=== PATIENT | male | born 1995 | race Two or more races ===

== ENCOUNTER 2025-05-05 13:52 | Inpatient (IN) | payer SELFPAY ==
[~2025-05-05] VITALS: Ht 182.9 cm; Wt 106.0 kg
[2025-05-05 14:38] LABS: Hematocrit 47.9 % (41.0-53.0); Hemoglobin 16.5 g/dL (13.5-17.5); Mean Corpuscular Hemoglobin 30.6 pg (28.0-32.0); Mean Corpuscular Volume 88.9 fL (80.0-100.0); Nucleated Red Blood Cells % 0.2 %
--- NOTE | 2025-05-05 14:42 | ED.PDOC ---
HPI (NEURO) HPI Comments 29y M who presents to the ED for chief complaint of generalized weakness. Pt states he has been having generalized weakness with associated increased blood in vomit, and increased urinary frequency and urgency. Pt states since yesterday, he has been using the restroom "40 times" and partner states pt has had incontinence in bed. Pt in the ED, noted to have weakness and malaise and had vitals checked with noted accu check that read HIGH. Pt has no history of DM but has family history on fathers side of DM. Pt otherwise denies any other symptoms at this time Chief Complaint: General Weakness Time Seen by MD: 14:41 Reviewed Notes: Medications, Allergies Information Source: Patient, Significant Other Mode of Arrival: Ambulatory Past Medical History PAST MEDICAL HISTORY: Denies Surgical History: Denies all surgeries Family History Family History: Family hx of DM Social History Smoker: Non-Smoker Alcohol: Denies ETOH Use Drugs: Denies Drug Use Lives In: Home Constitutional: reports: malaise, weakness; denies: chills, diaphoresis, fatigue, fever, sweats, others EENTM: denies: blurred vision, double vision, ear bleeding, ear discharge, ear drainage, ear pain, ear ringing, eye pain, eye redness, hearing loss, mouth pain, mouth swelling, nasal discharge, nose bleeding, nose congestion, nose pain, photophobia, tearing, throat pain, throat swelling, voice changes, others Respiratory: denies: cough, hemoptysis, orthopnea, SOB at rest, shortness of breath, SOB with excertion, stridor, wheezing, others Cardiovascular: denies: chest pain, dizzy spells, diaphoresis, Dyspnea on exertion, edema, irregular heart beat, left arm pain, lightheadedness, palpitations, PND, syncope, others Gastrointestinal: denies: abdomen distended, abdominal pain, blood streaked bowels, constipated, diarrhea, dysphagia, difficulty swallowing, hematemesis, melena, nausea, poor appetite, poor fluid intake, rectal bleeding, rectal pain, vomiting, others Genitourinary: denies: burning, dysuria, flank pain, frequency, hematuria, incontinence, penile discharge, penile sore, pain, testicle pain, testicle swelling, urgency, others Neurological: denies: dizziness, fainting, headache, left sided numbness, left sided weakness, numbness, paresthesia, pre-existing deficit, right sided numbness, right sided weakness, seizure, speech problems, tingling, tremors, weakness, others Musculoskeletal: denies: back pain, gout, joint pain, joint swelling, muscle pain, muscle stiffness, neck pain, others Integumetry: denies: bruises, change in color, change in hair/nails, dryness, laceration, lesions, lumps, rash, wounds, others Allergic/Immunocompromised: denies: Difficulty Healing, Frequent Infections, Hives, Itching, others Hematologic/Lymphatic: denies: anemia, blood clots, easy bleeding, easy bruising, swollen glands, others Endocrine: reports: excessive thirst, excessive urination; denies: excessive hunger, excessive sweating, flushing, intolerance to cold, intolerance to heat, unexplained weight gain, unexplained weight loss, others Psychiatric: denies: anxiety, bipolar disorder, depression, hopeless, panic dis order, schizophrenia, sleepless, suicidal, others All Other Systems: Reviewed and Negative Physical Exam General Appearance: Other (Tired appearing, well-developed well-nourished) HEENT: Normal ENT Inspection, Pharynx Normal, TMs Normal Neck: Full Range of Motion, Non-Tender, Normal, Normal Inspection Respiratory: Chest Non-Tender, Lungs Clear, No Accessory Muscle Use, No Respiratory Distress, Normal Breath Sounds Cardiovascular: No Edema, No JVD, No Murmur, No Gallop, Normal Peripheral Puls es, Regular Rate/Rhythm Breast Exam: Deferred Gastrointestinal: No Organomegaly, Non Tender, No Pulsatile Mass, Normal Bowel Sounds, Soft Genitalia: Deferred Pelvic: Deferred Rectal: Deferred Extremities: No calf tenderness, Normal capillary refill, Normal inspection, Normal range of motion, Non-tender, No pedal edema Musculoskeletal : Apperance: Normal 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 Was a procedure done?: No Differential Diagnosis (SZ) CVA: DKA, Encephalopathy, Hypoglycemia General Weakness: Anemia, Dehydration, Electrolyte imbalance, Encephalopathy, Other (hyperglycemia, new onset DM, ) X-Ray, Labs, Meds, VS Vital Signs Date Time Temp Pulse Resp B/P (MAP) Pulse Ox O2 Delivery O2 Flow Rate FiO2 05/05/25 15:24 98.2 121 20 144/74 (97) 96 98.2 05/05/25 14:01 114 05/05/25 13:53 99.1 120 20 137/91 98 99.1 Lab Test 05/05/25 14:23 Range/Units White Blood Count 11.0 H 4.4-10.8 10^3/uL Red Blood Count 5.39 4.5-5.90 10^6/uL Hemoglobin 16.5 13.5-17.5 g/dL Hematocrit 47.9 41.0-53.0 % Mean Corpuscular Volume 88.9 80.0-100.0 fL Mean Corpuscular Hemoglobin 30.6 28.0-32.0 pg Mean Corpuscular Hemoglobin Concent 34.4 32.0-36.0 g/dL Red Cell Distribution Width 13.4 11.8-14.3 % Platelet Count 251 140-450 10^3/uL Mean Platelet Volume 10.0 6.9-10.8 fL Neutrophils (%) (Auto) 72.0 37.0-80.0 % Lymphocytes (%) (Auto) 19.0 10.0-50.0 % Monocytes (%) (Auto) 7.9 0.0-12.0 % Eosinophils (%) (Auto) 0.7 0.0-7.0 % Basophils (%) (Auto) 0.4 0.0-2.0 % Neutrophils # (Auto) 8.0 1.6-8.6 10 ^3/uL Lymphocytes # (Auto) 2.1 0.4-5.4 10 ^3/uL Monocytes # (Auto) 0.9 0-1.3 10 ^3/uL Eosinophils # (Auto) 0.1 0-0.8 10 ^3/uL Basophils # (Auto) 0 0-0.2 10 ^3/uL Nucleated Red Blood Cells 0.2 % Sodium Level 128 L 136-145 mmol/L Potassium Level 4.8 3.5-5.1 mmol/L Chloride Level 96 L 98-107 mmol/L Carbon Dioxide Level 11 L 20-31 mmol/L Anion Gap 21 H 5-15 Blood Urea Nitrogen 10 9-23 mg/dL Creatinine 1.34 H 0.700-1.30 mg/dL Glomerular Filtration Rate Calc 74 >90 mL/min BUN/Creatinine Ratio 7.5 L 10.0-20.0 Serum Glucose 619 *H 74-106 mg/dL Calcium Level 9.7 8.7-10.4 mg/dL Lipase 34 12-53 U/L Beta-Hydroxybutyric Acid > 4.500 H < 0.4 mmol/L Current Medications Medications (Trade) Dose Ordered Sig/Markie Route Start Time Stop Time Status Last Admin Sodium Chloride 1,000 ml @ 1,000 mls/hr Q1H ONCE IV 05/05/25 14:15 05/05/25 15:14 DC 05/05/25 15:25 Ondansetron HCl (Zofran) 4 mg O ONCE IV 05/05/25 14:15 05/05/25 14:16 DC 05/05/25 15:25 X-Ray, Labs, Meds, VS Comment 29-year-old male here today with the above complaints with a presentation consistent with DKA. Patient is started on fluids and insulin drip and will be admitted to ICU for further management and care. Patient in agreement with the plan. Time of 1ST Reevaluation: 15:30 Reevaluation 1ST: Improved Patient Education/Counseling: Diagnosis, Treatment Family Education/Counseling: Diagnosis, Treatment Departure 1 Departure Time of Disposition: 16:04 Impression: Primary Impression: DKA (diabetic ketoacidosis) Disposition: ADMITTED INPATIENT Admit to: ICU Condition: Critical Critical Care Note Critical Care Time?: Yes (35 min-critical care time only) Stability Stability form required: No Heart Score Heart Score: Heart Score Response (Comments) Value History N/A 0 EKG N/A 0 Age N/A 0 Risk Factors N/A 0 Troponin N/A 0 Total 0 I personally scribed for AREN SALINAS MD ([email or web address]) on 05/05/25 at 14:42. Electronically submitted by Jonnie Olivares ([email or web address]). AREN SALINAS MD May 05, 2025 14:42
[2025-05-05] MEDS: ONDANSETRON HCL 4 MG/2 ML VIAL IV ONE (15:25)
[2025-05-05] MEDS: SODIUM CHLORIDE 0.9% 1,000 ML IV ONE (15:25)
[2025-05-05 15:27] LABS: Potassium 4.8 mmol/L (3.5-5.1)
[2025-05-05 15:28] LABS: Anion Gap 21 (5-15); Calcium 9.7 mg/dL (8.7-10.4)
[2025-05-05 15:30] LABS: Carbon Dioxide 11 mmol/L (20-31); Chloride 96 mmol/L (98-107); Sodium 128 mmol/L (136-145)
[2025-05-05 15:33] LABS: BUN/Creatinine Ratio 7.5 (10.0-20.0); Blood Urea Nitrogen 10 mg/dL (9-23)
[2025-05-05 15:40] LABS: Glucose 619 mg/dL (74-106)
[2025-05-05] MEDS ORDERED: DEXTROSE (50%) 50ML SYRG IV PRN (16:15)
[2025-05-05 16:55] LABS: Magnesium 2.0 mg/dL (1.6-2.6)
[2025-05-05 18:06] LABS: Chloride 99 mmol/L (98-107); Potassium 4.3 mmol/L (3.5-5.1)
[2025-05-05 18:07] LABS: Anion Gap 19 (5-15)
[2025-05-05 18:08] LABS: Calcium 9.5 mg/dL (8.7-10.4); Carbon Dioxide 13 mmol/L (20-31); Sodium 131 mmol/L (136-145)
[2025-05-05 18:12] LABS: BUN/Creatinine Ratio 7.1 (10.0-20.0); Blood Urea Nitrogen 9 mg/dL (9-23)
[2025-05-05 18:15] LABS: Glucose 437 mg/dL (74-106)
[2025-05-05 18:40] VITALS: PULSE 110; RESP 18; O2SAT 98
[2025-05-05] MEDS: ACCU-CHEK COMFORT CURVE STRIP VI SCH (18:45)
[2025-05-05] MEDS: INSULIN DRIP 100 UNIT/100ML 100 ML IV SCH (19:06)
[2025-05-05] MEDS: SODIUM CHLORIDE 0.9% 1,000 ML IV SCH (19:30)
[2025-05-05] MEDS: SOD CHL 0.9%/ KCL 20MEQ 1,000 ML IV SCH (19:30)
[2025-05-05 20:53] LABS: Urine Budding Yeast OCCASIONAL /hpf (None Seen); Urine Protein, UAD 1+ (Negative)
[2025-05-05 21:05] LABS: Amphetamine Screen, Urine Neg (NEGATIVE); Barbiturate Scree,Urine Neg (NEGATIVE); Benzodiazephine Screen, Urine Neg (NEGATIVE); Cannabinoid Screen, Urine Neg (NEGATIVE); Cocaine Screen, Urine Neg (NEGATIVE); Opiate Scree,Urine Neg (NEGATIVE); Phencyclidine Screen, Urine Neg (NEGATIVE)
[2025-05-05 21:30] VITALS: PULSE 110; RESP 17; O2SAT 98
[2025-05-05] MEDS ORDERED: DOCUSATE SOD 100 MG CAP PO PRN (22:00)
[2025-05-05] MEDS ORDERED: ONDANSETRON HCL 4 MG/2 ML VIAL IV PRN (22:00)
[2025-05-05] MEDS ORDERED: HYDROcodone-ACET 5/325MG TAB PO PRN (22:00)
[2025-05-05] MEDS ORDERED: hydrALAZINE HCL 20 MG/ML VL IV PRN (22:15)
--- NOTE | 2025-05-05 23:11 | DVHHP2 ---
History of Present Illness Reason for Visit: Diabetes with ketoacidosis History of Present Illness The patient is a 29-year-old male who denies past medical history presented to [facility] ED with complaint of generalized weakness..Patient reports he has been having generalized weakness associated with increased blood pressure, urinary frequency, and urgency. Patient reports since yesterday, he has been using the restroom "40 times" and partner states patient had incontinence in bed. Patient was seen and evaluated in the ED, laboratory data shows WBC 11.0, platelets 251, sodium 131, potassium 4.3, BUN nine, creatinine 1.26, glucose 437, anion gap 19, calcium 9.5, lipase 34, acetone > 4.500, blood pressure 168/80, heart rate 108, temperature 98.7 F, O2 saturation 96% room air. Patient was found to be in diabetes ketoacidosis, please see medication orders section in the computer. On my assessment, patient denied chest pain, no headache, no dizziness, no diaphoresis, no shortness of breaths, no nausea, no vomiting, fever, no chills. Patient was admitted for further evaluation and medical management. Past Medical History Denies past medical history Past Surgical History Denies all surgeries Family History Family history of diabetes Past Social History The patient lives at home, denies smoking, alcohol or illicit drugs abuse. Review of Systems Constitutional: Yes: Weakness; No: Fever, Chills, Sweats, Malaise, Other Eyes: No: Pain, Vision change, Conjunctivae inflammation, Eyelid inflammation, Other, Redness ENT: No: Ear pain, Ear discharge, Nose pain, Nose discharge, Nose congestion, Mouth pain, Mouth swelling, Throat pain, Throat swelling, Other Respiratory: No: Cough, Dry, Shortness of breath, SOB with excertion, Wheezing, Hemoptysis, Pleuritic Pain, Sputum, Wheezing, Other Cardiovascular: No: Chest Pain, Palpitations, Orthopnea, Paroxysmal Noc. Dyspnea, Edema, Lt Headedness, Other Gastrointestinal: No: Nausea, Vomiting, Abdominal Pain, Diarrhea, Constipation, Melena, Hematochezia, Other Genitourinary: No Dysuria; Frequency, Incontinence; No Hematuria, No Retention; Other (Urinary urgency) Musculoskeletal: No: other, neck pain, shoulder pain, arm pain, back pain, hand pain, leg pain, foot pain Skin: No: Rash, Lesions, Jaundice, Bruising, Other Neurological: No: Weakness, Numbness, Incoordination, Change in speech, Confusion, Seizures, Other Allergies: Coded Allergies: NO KNOWN ALLERGIES (Unverified , 05/05/25) Medications Current Medications Medications Dose Ordered Sig/Markie Route Start Time Stop Time Status Last Admin Dose Admin Potassium Chloride/Sodium Chloride 1,000 ml @ 150 mls/hr Q6H40M IV 05/05/25 16:15 05/05/25 19:30 150 MLS/HR Insulin Human (Reg)/Sodium Chloride 100 ml @ 0.5 mls/hr Q24H IV 05/05/25 16:15 05/05/25 19:06 6 MLS/HR Dextrose 50 ml UD PRN IV 05/05/25 16:15 Diagnostic Test (Pha) 1 strip Q90MIN 05/05/25 16:30 05/05/25 21:45 1 STRIP Acetaminophen/ Hydrocodone Bitart 1 tab Q4HP PRN PO 05/05/25 22:00 Ondansetron HCl 4 mg Q4HP PRN IV 05/05/25 22:00 Docusate Sodium 100 mg BIDPRN PRN PO 05/05/25 22:00 Acetaminophen 650 mg Q6HP PRN PO 05/05/25 22:00 Hydralazine HCl 10 mg Q6HP PRN IV 05/05/25 22:15 Exam Vital Signs Vital Signs Date Time Temp Pulse Resp B/P (MAP) Pulse Ox O2 Delivery O2 Flow Rate FiO2 05/05/25 21:30 110 17 98 Room Air* 0 21 05/05/25 21:15 168/80 (109) 05/05/25 18:40 98.7 98.7 General Appearance: Alert, Oriented X3, Cooperative, No acute distress HEENT: Atraumatic, EOMI, Mucous membr. moist/pink Respiratory: Clear to auscultation, Normal air movement Cardiovascular: Regular rate, Normal S1, Normal S2, No murmurs Abdominal: Normal bowel sounds, Soft, No tenderness, No hepatospenomegaly, No masses Extremities: No clubbing, No cyanosis, No edema, Normal pulses, No tenderness/swelling Skin: No rashes, No breakdown, No significant lesion Neuro: Normal speech, Normal tone, Sensation intact, Cranial nerves 3-12 NL, Reflexes 2+, Other (Generalized weakness) Psych/Mental Status: Mental status NL, Mood NL Labs/Xrays Labs Test 05/05/25 21:42 05/05/25 20:00 05/05/25 17:41 05/05/25 14:23 Range/Units POC Glucose 248 H 70-106 mg/dl Urine Color Light-yellow Yellow Urine Clarity Clear Clear Urine pH 5.0 5.0-9.0 Urine Specific [place] 1.035 1.001-1.035 Urine Protein 1+ H Negative Urine Ketones 4+ H Negative Urine Blood Trace H Negative /uL Urine Nitrite Negative Negative Urine Bilirubin Negative Negative Urine Urobilinogen Normal Negative mg/dL Urine Leukocyte Esterase Negative Negative /uL Urine RBC 4 0 - 3 /hpf Urine Microscopic WBC 1 0-3 /HPF Urine Squamous Epithelial Cells Few <5 /hpf Urine Bacteria None seen None Seen /hpf Urine Mucus Few None Seen Urine Yeast (Budding) Occasional None Seen /hpf Urine Glucose 4+ H Normal mg/dL Urine Opiates Screen Neg NEGATIVE Urine Fentanyl Screen Neg NEGATIVE Urine Barbiturates Screen Neg NEGATIVE Urine Phencyclidine Screen Neg NEGATIVE Urine Amphetamines Screen Neg NEGATIVE Urine Benzodiazepines Screen Neg NEGATIVE Urine Cocaine Screen Neg NEGATIVE Urine Cannabinoids Screen Neg NEGATIVE Sodium Level 131 L 136-145 mmol/L Potassium Level 4.3 3.5-5.1 mmol/L Chloride Level 99 98-107 mmol/L Carbon Dioxide Level 13 L 20-31 mmol/L Anion Gap 19 H 5-15 Blood Urea Nitrogen 9 9-23 mg/dL Creatinine 1.26 0.700-1.30 mg/dL Glomerular Filtration Rate Calc 80 >90 mL/min BUN/Creatinine Ratio 7.1 L 10.0-20.0 Serum Glucose 437 #*H 74-106 mg/dL Calcium Level 9.5 8.7-10.4 mg/dL White Blood Count 11.0 H 4.4-10.8 10^3/uL Red Blood Count 5.39 4.5-5.90 10^6/uL Hemoglobin 16.5 13.5-17.5 g/dL Hematocrit 47.9 41.0-53.0 % Mean Corpuscular Volume 88.9 80.0-100.0 fL Mean Corpuscular Hemoglobin 30.6 28.0-32.0 pg Mean Corpuscular Hemoglobin Concent 34.4 32.0-36.0 g/dL Red Cell Distribution Width 13.4 11.8-14.3 % Platelet Count 251 140-450 10^3/uL Mean Platelet Volume 10.0 6.9-10.8 fL Neutrophils (%) (Auto) 72.0 37.0-80.0 % Lymphocytes (%) (Auto) 19.0 10.0-50.0 % Monocytes (%) (Auto) 7.9 0.0-12.0 % Eosinophils (%) (Auto) 0.7 0.0-7.0 % Basophils (%) (Auto) 0.4 0.0-2.0 % Neutrophils # (Auto) 8.0 1.6-8.6 10 ^3/uL Lymphocytes # (Auto) 2.1 0.4-5.4 10 ^3/uL Monocytes # (Auto) 0.9 0-1.3 10 ^3/uL Eosinophils # (Auto) 0.1 0-0.8 10 ^3/uL Basophils # (Auto) 0 0-0.2 10 ^3/uL Nucleated Red Blood Cells 0.2 % Hemoglobin A1c 11.1 H <5.7 % A1C Serum Osmolality 325 H 278-298 mOsm/kg Phosphorus Level 4.0 2.4-5.1 mg/dL Magnesium Level 2.0 1.6-2.6 mg/dL Lipase 34 12-53 U/L Beta-Hydroxybutyric Acid > 4.500 H < 0.4 mmol/L SEPSIS Sepsis Screen Date sepsis recognized/suspect: May 05, 2025 Time Sepsis recognized/suspect: 2129 Recent Procedure: No On Antibiotic Therapy: No Respiratory Rate >20: No Heart Rate >90: Yes Temp<36 C (96.8 F) or >38.3 C: No SBP <90 or MAP <65 mmHG: No New Acute Mental Status Change: No Is the patient on CPAP, BIPAP,: No Physician Orders Insulin Drip Protocol (05/05/25 ) Sod Chl 0.9%/ Kcl 20meq (05/05/25 16:15) Insulin Drip 100 Unit/100ml (Myxredlin 1 (05/05/25 16:15) Dextrose 50% Syringe (05/05/25 16:15) Glucose Blood (Accu-Chek Comfort Curve T (05/05/25 16:30) Basic Metabolic Panel (05/05/25 22:04) Basic Metabolic Panel (05/06/25 04:04) Basic Metabolic Panel (05/06/25 10:04) Neurological Assessment (05/05/25 16:04) Vs/Hemodynamics .PER UNIT PROTOCOL (05/05/25 16:04) Consistent Carb(Ccho)Diabetes (05/06/25 Breakfast) Allergies (05/05/25 21:48) Code Status (05/05/25 21:48) Oxygen Per Hour (05/05/25 21:48) Hydrocodone-Acet 5/325mg Tab ([place] 5/32 (05/05/25 22:00) Ondansetron Hcl (Zofran) (05/05/25 22:00) Docusate Sodium Capsule (Colace Capsule) (05/05/25 22:00) Fall Risk Precautions In Place QSHIFT (05/05/25 21:48) Complete Blood Count (05/06/25 04:00) Comprehensive Metabolic Panel (05/06/25 04:00) Condition: Critical (05/05/25 21:48) Acetaminophen Tablet (Tylenol Tablet) (05/05/25 22:00) Maintain Bed Rest (05/05/25 21:48) Sequential Compression Device (05/05/25 ) Hydralazine Injection (Apresoline Inject (05/05/25 22:15) Vital Signs Date Time Temp Pulse Resp B/P (MAP) Pulse Ox O2 Delivery O2 Flow Rate FiO2 05/05/25 21:30 110 17 98 Room Air* 0 21 05/05/25 21:15 108 16 168/80 (109) 98 05/05/25 21:00 115 14 143/73 (96) 98 05/05/25 20:45 106 18 143/73 (96) 26 05/05/25 20:30 112 19 152/79 (103) 97 05/05/25 20:15 113 19 128/72 (90) 98 05/05/25 20:00 113 19 128/72 (90) 97 05/05/25 19:45 109 17 122/79 (93) 96 05/05/25 19:30 111 21 138/76 (96) 98 05/05/25 19:15 111 23 125/100 (108) 98 05/05/25 18:40 110 18 98 Room Air* 0 21 05/05/25 18:40 98.7 110 20 134/76 (95) 96 98.7 05/05/25 15:24 98.2 121 20 144/74 (97) 96 98.2 Laboratory Tests Test 05/05/25 14:23 White Blood Count 11.0 10^3/uL (4.4-10.8) H Medications Medications Dose Ordered Sig/Markie Route Start Time Stop Time Status Last Admin Dose Admin Diagnostic Test (Pha) 1 strip Q90MIN 05/05/25 16:30 05/05/25 21:45 1 STRIP Insulin Human (Reg)/Sodium Chloride 100 ml @ 0.5 mls/hr Q24H IV 05/05/25 16:15 05/05/25 19:06 6 MLS/HR Ondansetron HCl 4 mg O ONCE IV 05/05/25 14:15 05/05/25 14:16 DC 05/05/25 15:25 4 MG Potassium Chloride/Sodium Chloride 1,000 ml @ 150 mls/hr Q6H40M IV 05/05/25 16:15 05/05/25 19:30 150 MLS/HR Sodium Chloride 1,000 ml @ 500 mls/hr Q2H IV 05/05/25 16:15 05/05/25 20:14 DC 05/05/25 20:15 500 MLS/HR Sodium Chloride 1,000 ml @ 1,000 mls/hr Q1H ONCE IV 05/05/25 14:15 05/05/25 15:14 DC 05/05/25 15:25 1,000 MLS/HR Assessment/Plan Assessment/Plan Diabetes with ketoacidosis Generalized weakness Leukocytosis, unspecified Plan 1. Admit to intensive care unit 2. Breathing treatment 3. Pain control management 4. Management of fluids and electrolytes 5. Consultation for hospitalist 6. Diagnostic tests chest x-ray 7. DVT prophylaxis-on SCDs 8. Repeat labs CBC, CMP in a.m. 9. Continue with current medical management 10. Treatment plan discussed with patient and RN. Patient verbalized underst anding. Plan discussed with: Patient, Other (RN) My Orders Orders - ALLAN BARRON DNP Procedure Category Date Status Time Consistent DIET 05/06/25 Transmitted [facility]Diabetes Breakfast Allergies TALHA 05/05/25 In Process 21:48 Code Status CODE 05/05/25 Transmitted 21:48 Oxygen Per Hour RT 8/25/25 Transmitted 21:48 Hydrocodone-Acet PHA 05/05/25 In Process 5/325mg Tab ([place] 22:00 Ondansetron Hcl PHA 05/05/25 In Process (Zofran) 22:00 Docusate Sodium PHA 05/05/25 In Process Capsule (Colace 22:00 Fall Risk Precautions TALHA 05/05/[address] 21:48 Complete Blood Count LAB 05/06/25 Verified 04:00 Comprehensive LAB 05/06/25 Verified Metabolic Panel 04:00 Condition: Critical TALHA 05/05/25 In Process 21:48 Acetaminophen Tablet PHA 05/05/25 In Process (Tylenol Tablet) 22:00 Maintain Bed Rest TALHA 05/05/25 In Process 21:48 Sequential TALHA 05/05/25 In Process Compression Device Hydralazine Injection PHA 05/05/25 In Process (Apresoline Inject 22:15 Problem List: (1) Diabetes with ketoacidosis (2) Generalized weakness (3) Leukocytosis, unspecified Date of Service: May 05, 2025 Billing Provider: ALLAN BARRON DNP Common Visit Codes: [id number] INP/OBS CARE (HIGH) ALLAN BARRON DNP May 05, 2025 23:11
[2025-05-05] MEDS ORDERED: MORPHINE SULFATE INJ 2 MG/ml SYRG IV PRN (23:15)
[2025-05-05] MEDS ORDERED: NITROGLYCERIN 0.4 MG SL TAB SL PRN (23:15)
[2025-05-05 23:37] LABS: Chloride 105 mmol/L (98-107); Potassium 3.6 mmol/L (3.5-5.1); Sodium 137 mmol/L (136-145)
[2025-05-05 23:39] LABS: Anion Gap 18 (5-15); Calcium 9.2 mg/dL (8.7-10.4)
[2025-05-05 23:44] LABS: BUN/Creatinine Ratio 7.3 (10.0-20.0)
[2025-05-05 23:49] LABS: Blood Urea Nitrogen 8 mg/dL (9-23); Carbon Dioxide 14 mmol/L (20-31); Glucose 242 mg/dL (74-106)
[2025-05-06] VITALS (70 sets, daily range): BP systolic 102–140; BP diastolic 46–88; PULSE 68–120; RESP 8–23; TEMP 98–98.3; O2SAT 92–100
[2025-05-06 04:38] LABS: Hematocrit 43.8 % (41.0-53.0); Hemoglobin 15.4 g/dL (13.5-17.5); Mean Corpuscular Hemoglobin 30.9 pg (28.0-32.0); Mean Corpuscular Volume 88.0 fL (80.0-100.0); Nucleated Red Blood Cells % 0.1 %
[2025-05-06 04:48] LABS: Albumin 4.3 g/dL (3.2-4.8); Anion Gap 16 (5-15); BUN/Creatinine Ratio 6.8 (10.0-20.0); Calcium 8.9 mg/dL (8.7-10.4); Chloride 106 mmol/L (98-107); Potassium 3.6 mmol/L (3.5-5.1); Sodium 137 mmol/L (136-145); Total Protein 7.3 g/dL (5.7-8.2)
[2025-05-06 04:49] LABS: Bilirubin, Total 0.6 mg/dL (0.2-1.0)
[2025-05-06 05:13] LABS: Alanine Aminotransferase 92 U/L (7-40); Alkaline Phosphatase 127 U/L (46-116); Blood Urea Nitrogen 7 mg/dL (9-23); Carbon Dioxide 15 mmol/L (20-31); Glucose 228 mg/dL (74-106)
[2025-05-06] MEDS ORDERED: INSULIN DRIP 100 UNIT/100ML 100 ML IV SCH ×5 (06:15→16:30)
[2025-05-06] MEDS: INSULIN DRIP 100 UNIT/100ML 100 ML IV SCH (09:45)
[2025-05-06 11:07] LABS: Anion Gap 13 (5-15); Potassium 3.6 mmol/L (3.5-5.1); Sodium 140 mmol/L (136-145)
[2025-05-06 11:09] LABS: Calcium 8.8 mg/dL (8.7-10.4)
[2025-05-06 11:11] LABS: Carbon Dioxide 17 mmol/L (20-31); Chloride 110 mmol/L (98-107)
[2025-05-06 11:16] LABS: BUN/Creatinine Ratio 6.1 (10.0-20.0); Blood Urea Nitrogen < 5 mg/dL (9-23); Glucose 136 mg/dL (74-106)
--- NOTE | 2025-05-06 11:43 | DVHPN2 ---
Subjective The patient is seen and examined at bedside. Remained on insulin drip. Anion Gap is almost closed. Nausea but no vomiting. Reviewed: Care Plan, H&P, Labs, Medications, Previous Orders, Radiology Changes from previous H/P or p: No Changes Eyes: No Pain, No Vision change, No Conjunctivae inflammation, No Eyelid inflammation, No Other, No Redness ENT: No Ear pain, No Ear discharge, No Nose pain, No Nose discharge, No Nose congestion, No Mouth pain, No Mouth swelling, No Throat pain, No Throat swelling, No Other Cardiovascular: No Chest Pain, No Palpitations, No Orthopnea, No Paroxysmal Noc. Dyspnea, No Edema, No Lt Headedness, No Other Respiratory: No Cough, No Dry, No Shortness of breath, No SOB with excertion, No Wheezing, No Hemoptysis, No Pleuritic Pain, No Sputum, No Other Gastrointestinal: No Nausea, No Vomiting, No Abdominal Pain, No Diarrhea, No Constipation, No Melena, No Hematochezia, No Other Genitourinary: No Dysuria; Frequency, Incontinence; No Hematuria, No Retention; Other (Urinary urgency) Musculoskeletal: No other, No neck pain, No shoulder pain, No arm pain, No back pain, No hand pain, No leg pain, No foot pain Skin: No Rash, No Lesions, No Jaundice, No Bruising, No Other Objective Vitals Vital Signs Date Time Temp Pulse Resp B/P (MAP) Pulse Ox O2 Delivery O2 Flow Rate FiO2 05/06/25 10:45 89 15 100 05/06/25 10:00 Room Air* 0 21 05/06/25 08:00 98.1 98.1 Intake/Output Intake and Output 05/06/25 07:00 Intake Total 2214 ml Output Total 0 ml Balance 2214 ml Intake Oral 0 ml IV Total 2214 ml Output Urine Total 0 ml General Appearance: Alert, Oriented X3, Cooperative, No acute distress HEENT: Atraumatic, PERRLA, EOMI, Mucous membr. moist/pink Neck: Supple Lungs: Clear to auscultation, Normal air movement Cardiovascular: Regular rate, Normal S1, Normal S2, No murmurs, Gallops, Rubs Abdomen: Normal bowel sounds, Soft, No tenderness Neuro: Cranial nerves 3-12 NL Psych/Mental Status: Mental status NL Medications Current Medications Medications Dose Ordered Sig/Markie Route Start Time Stop Time Status Last Admin Dose Admin Potassium Chloride/Sodium Chloride 1,000 ml @ 150 mls/hr Q6H40M IV 05/05/25 16:15 05/06/25 05:06 150 MLS/HR Dextrose 50 ml UD PRN IV 05/05/25 16:15 Diagnostic Test (Pha) 1 strip Q90MIN 05/05/25 16:30 05/06/25 10:35 1 STRIP Acetaminophen/ Hydrocodone Bitart 1 tab Q4HP PRN PO 05/05/25 22:00 Ondansetron HCl 4 mg Q4HP PRN IV 05/05/25 22:00 Docusate Sodium 100 mg BIDPRN PRN PO 05/05/25 22:00 Acetaminophen 650 mg Q6HP PRN PO 05/05/25 22:00 Hydralazine HCl 10 mg Q6HP PRN IV 05/05/25 22:15 Nitroglycerin 0.4 mg Q5MINP PRN SL 05/05/25 23:15 Morphine Sulfate 2 mg Q30M PRN IV 05/05/25 23:15 Insulin Human (Reg)/Sodium Chloride 100 ml @ 2 mls/hr Q24H IV 05/06/25 09:30 UNV Insulin Human (Reg)/Sodium Chloride 100 ml @ 4 mls/hr Q24H IV 05/06/25 09:45 05/06/25 09:45 5 MLS/HR Laboratory Results Laboratory Tests 05/06/25 02:54 05/06/25 10:36 Chemistry Test 05/05/25 14:23 05/05/25 17:41 05/05/25 23:03 05/06/25 02:54 Calcium Level 9.7 mg/dL (8.7-10.4) 9.5 mg/dL (8.7-10.4) 9.2 mg/dL (8.7-10.4) 8.9 mg/dL (8.7-10.4) Magnesium Level 2.0 mg/dL (1.6-2.6) Phosphorus Level 4.0 mg/dL (2.4-5.1) Albumin 4.3 g/dL (3.2-4.8) Total Protein 7.3 g/dL (5.7-8.2) Test 05/06/25 10:36 Calcium Level 8.8 mg/dL (8.7-10.4) Lipid panel Test 05/05/25 14:23 Lipase 34 U/L (12-53) LFT Test 05/06/25 02:54 Alanine Aminotransferase (ALT) 92 U/L (7-40) H Alkaline Phosphatase 127 U/L (46-116) H Aspartate Amino Transferase (AST) 46 U/L (13-40) H Total Bilirubin 0.6 mg/dL (0.2-1.0) HgA1c, TSH Test 05/05/25 14:23 Hemoglobin A1c 11.1 % A1C (<5.7) H Urinalysis Test 05/05/25 20:00 Urine Color Light-yellow (Yellow) Urine Clarity Clear (Clear) Urine pH 5.0 (5.0-9.0) Urine Specific [place] 1.035 (1.001-1.035) Urine Protein 1+ (Negative) H Urine Ketones 4+ (Negative) H Urine Blood Trace /uL (Negative) H Urine Nitrite Negative (Negative) Urine Bilirubin Negative (Negative) Urine Urobilinogen Normal mg/dL (Negative) Urine Leukocyte Esterase Negative /uL (Negative) Urine RBC 4 /hpf (0 - 3) Urine Microscopic WBC 1 /HPF (0-3) Urine Squamous Epithelial Cells Few /hpf (<5) Urine Bacteria None seen /hpf (None Seen) Urine Mucus Few (None Seen) Urine Yeast (Budding) Occasional /hpf (None Urine Glucose 4+ mg/dL (Normal) H Labs and/or images reviewed: Labs reviewed by me Assessment/Plan Assessment/Plan Diabetes with ketoacidosis Generalized weakness Leukocytosis, unspecified Continuing current management. Continuing with insulin drip. When the patient's gap closed anticipate to switch the patient to Lantus and sliding scale insulin. As right now I started the patient on Lantus 20 units subQ q.h.s. We will start feeding the patient when he able to get off insulin drip Continuing with IV fluid Remained in ICU today. This medical document was created using an electronic medical record system with [employer] direct computerized dictation system. Although this document has been carefully reviewed, there may still be some phonetic and typographical errors. These areas are purely typographical due to imperfections of the software programs, and do not reflect any compromise in the patient's medical care. Plan discussed with: Patient Date of Service: May 06, 2025 Billing Provider: CAPRI HASTINGS MD Common Visit Codes: [id number] INP/OBS CARE(HIGH) CAPRI HASTINGS MD May 06, 2025 11:43
[2025-05-06] MEDS: ACETAMINOPHEN 325 MG TAB PO PRN (13:58)
[2025-05-06] MEDS ORDERED: DEXTROSE (50%) 50ML SYRG IV PRN ×2 (16:45→17:45)
[2025-05-06 17:07] LABS: Alkaline Phosphatase 96 U/L (46-116)
[2025-05-06 17:08] LABS: Alanine Aminotransferase 101 U/L (7-40); Albumin 3.7 g/dL (3.2-4.8); Anion Gap 11 (5-15); BUN/Creatinine Ratio 8.0 (10.0-20.0); Bilirubin, Total 0.6 mg/dL (0.2-1.0); Blood Urea Nitrogen 7 mg/dL (9-23); Calcium 8.4 mg/dL (8.7-10.4); Carbon Dioxide 19 mmol/L (20-31); Chloride 111 mmol/L (98-107); Glucose 102 mg/dL (74-106); Potassium 4.3 mmol/L (3.5-5.1); Sodium 141 mmol/L (136-145); Total Protein 5.7 g/dL (5.7-8.2)
[2025-05-06] MEDS: SODIUM CHLORIDE 0.9% 1,000 ML IV SCH (17:45)
[2025-05-06] MEDS ORDERED: ACCU-CHEK COMFORT CURVE STRIP VI SCH (18:00)
[2025-05-06] MEDS: ACCU-CHEK COMFORT CURVE STRIP VI SCH (21:38)
[2025-05-06] MEDS: InsuLIN REG 1unit/0.01ml Soln (100units/ml) SC SCH ×2 (21:38→22:00)
[2025-05-06] MEDS ORDERED: InsuLIN REG 1unit/0.01ml Soln (100units/ml) SC SCH (22:00)
[2025-05-07] VITALS (47 sets, daily range): BP systolic 102–140; BP diastolic 44–92; PULSE 73–108; RESP 12–27; TEMP 97.8–98.7; O2SAT 84–100
[2025-05-07 04:09] LABS: Hematocrit 41.3 % (41.0-53.0); Hemoglobin 14.5 g/dL (13.5-17.5); Mean Corpuscular Hemoglobin 31.0 pg (28.0-32.0); Mean Corpuscular Volume 88.4 fL (80.0-100.0); Nucleated Red Blood Cells % 0.0 %
[2025-05-07 04:35] LABS: Albumin 3.8 g/dL (3.2-4.8); Alkaline Phosphatase 105 U/L (46-116); Anion Gap 14 (5-15); Calcium 8.8 mg/dL (8.7-10.4); Chloride 107 mmol/L (98-107); Potassium 3.6 mmol/L (3.5-5.1); Sodium 138 mmol/L (136-145); Total Protein 6.6 g/dL (5.7-8.2)
[2025-05-07 04:36] LABS: Bilirubin, Total 0.5 mg/dL (0.2-1.0)
[2025-05-07 04:40] LABS: Alanine Aminotransferase 101 U/L (7-40); BUN/Creatinine Ratio 5.3 (10.0-20.0); Blood Urea Nitrogen < 5 mg/dL (9-23); Carbon Dioxide 17 mmol/L (20-31); Glucose 211 mg/dL (74-106)
[2025-05-07] MEDS ORDERED: DEXTROSE (50%) 50ML SYRG IV PRN (07:15)
[2025-05-07] MEDS: INSULIN LANTUS (GLARGINE) 1 /0.01ml (100units/ml) SC SCH (09:34)
[2025-05-07] MEDS: ACCU-CHEK COMFORT CURVE STRIP VI SCH (11:15)
[2025-05-07] MEDS: InsuLIN REG 1unit/0.01ml Soln (100units/ml) SC SCH ×2 (11:15→21:24)
--- NOTE | 2025-05-07 11:59 | DVHPN2 ---
Subjective Patient is seen and examined at bedside. Feel better. Patient is off insulin drip. Patient is eating right now. Reviewed: Care Plan, H&P, Labs, Medications, Previous Orders, Radiology Changes from previous H/P or p: No Changes Eyes: No Pain, No Vision change, No Conjunctivae inflammation, No Eyelid inflammation, No Other, No Redness ENT: No Ear pain, No Ear discharge, No Nose pain, No Nose discharge, No Nose congestion, No Mouth pain, No Mouth swelling, No Throat pain, No Throat swelling, No Other Cardiovascular: No Chest Pain, No Palpitations, No Orthopnea, No Paroxysmal Noc. Dyspnea, No Edema, No Lt Headedness, No Other Respiratory: No Cough, No Dry, No Shortness of breath, No SOB with excertion, No Wheezing, No Hemoptysis, No Pleuritic Pain, No Sputum, No Other Gastrointestinal: No Nausea, No Vomiting, No Abdominal Pain, No Diarrhea, No Constipation, No Melena, No Hematochezia, No Other Genitourinary: No Dysuria; Frequency, Incontinence; No Hematuria, No Retention; Other (Urinary urgency) Musculoskeletal: No other, No neck pain, No shoulder pain, No arm pain, No back pain, No hand pain, No leg pain, No foot pain Skin: No Rash, No Lesions, No Jaundice, No Bruising, No Other Objective Vitals Vital Signs Date Time Temp Pulse Resp B/P (MAP) Pulse Ox O2 Delivery O2 Flow Rate FiO2 05/07/25 11:30 99 17 126/63 (84) 97 05/07/25 10:00 Nasal Cannula* 2 28 05/07/25 08:00 97.8 97.8 Intake/Output Intake and Output 05/07/25 07:00 Intake Total 3025 ml Output Total 800 ml Balance 2225 ml Intake Oral 590 ml IV Total 2435 ml Output Urine Total 800 ml # Voids 3 General Appearance: Alert, Oriented X3, Cooperative, No acute distress HEENT: Atraumatic, PERRLA, EOMI, Mucous membr. moist/pink Neck: Rigidity Lungs: Clear to auscultation, Normal air movement Cardiovascular: Regular rate, Normal S1, Normal S2, No murmurs, Gallops, Rubs Abdomen: Normal bowel sounds, Soft, No tenderness Neuro: Cranial nerves 3-12 NL Psych/Mental Status: Mental status NL Medications Current Medications Medications Dose Ordered Sig/Markie Route Start Time Stop Time Status Last Admin Dose Admin Acetaminophen/ Hydrocodone Bitart 1 tab Q4HP PRN PO 05/05/25 22:00 Ondansetron HCl 4 mg Q4HP PRN IV 05/05/25 22:00 Docusate Sodium 100 mg BIDPRN PRN PO 05/05/25 22:00 Acetaminophen 650 mg Q6HP PRN PO 05/05/25 22:00 05/06/25 13:58 650 MG Hydralazine HCl 10 mg Q6HP PRN IV 05/05/25 22:15 Nitroglycerin 0.4 mg Q5MINP PRN SL 05/05/25 23:15 Morphine Sulfate 2 mg Q30M PRN IV 05/05/25 23:15 Insulin Human (Reg)/Sodium Chloride 100 ml @ 2 mls/hr Q24H IV 05/06/25 09:30 UNV Diagnostic Test (Pha) 1 strip Q90MIN 05/06/25 18:00 UNV Insulin Human (Reg)/Sodium Chloride 100 ml @ 1 mls/hr Q24H IV 05/06/25 16:30 UNV Dextrose 50 ml PRN PRN IV 05/06/25 16:45 UNV Dextrose 50 ml UD PRN IV 05/06/25 17:45 Cancel Sodium Chloride 1,000 ml @ 150 mls/hr Q6H40M IV 05/06/25 17:45 05/07/25 09:44 150 MLS/HR Insulin Glargine 20 units DAILY@1000 SC 05/07/25 10:00 05/07/25 09:34 20 UNITS Diagnostic Test (Pha) 1 strip ACHS 05/07/25 11:30 05/07/25 11:15 1 STRIP Insulin Human Regular HS SC 05/07/25 22:00 Insulin Human Regular AC SC 05/07/25 11:30 05/07/25 11:15 12 UNITS Dextrose 50 ml UD PRN IV 05/07/25 07:15 Laboratory Results Laboratory Tests 05/07/25 03:22 Chemistry Test 05/06/25 16:30 05/07/25 03:22 Albumin 3.7 g/dL (3.2-4.8) 3.8 g/dL (3.2-4.8) Calcium Level 8.4 mg/dL (8.7-10.4) L 8.8 mg/dL (8.7-10.4) Total Protein 5.7 g/dL (5.7-8.2) 6.6 g/dL (5.7-8.2) LFT Test 05/06/25 16:30 05/07/25 03:22 Alanine Aminotransferase (ALT) 101 U/L (7-40) H 101 U/L (7-40) H Alkaline Phosphatase 96 U/L (46-116) 105 U/L (46-116) Aspartate Amino Transferase (AST) 88 U/L (13-40) H 72 U/L (13-40) H Total Bilirubin 0.6 mg/dL (0.2-1.0) 0.5 mg/dL (0.2-1.0) Urinalysis Test 05/05/25 20:00 Urine Color Light-yellow (Yellow) Urine Clarity Clear (Clear) Urine pH 5.0 (5.0-9.0) Urine Specific [place] 1.035 (1.001-1.035) Urine Protein 1+ (Negative) H Urine Ketones 4+ (Negative) H Urine Blood Trace /uL (Negative) H Urine Nitrite Negative (Negative) Urine Bilirubin Negative (Negative) Urine Urobilinogen Normal mg/dL (Negative) Urine Leukocyte Esterase Negative /uL (Negative) Urine RBC 4 /hpf (0 - 3) Urine Microscopic WBC 1 /HPF (0-3) Urine Squamous Epithelial Cells Few /hpf (<5) Urine Bacteria None seen /hpf (None Seen) Urine Mucus Few (None Seen) Urine Yeast (Budding) Occasional /hpf (None Urine Glucose 4+ mg/dL (Normal) H Microbiology Microbiology Date/Time Source Procedure Growth Status 05/06/25 02:00 Nose MRSA Screen - Final Complete Labs and/or images reviewed: Labs reviewed by me Assessment/Plan Assessment/Plan Diabetes with ketoacidosis Possible diabetes type I New onset diabetes Generalized weakness Leukocytosis, unspecified Continuing current management. Continuing with sliding scale insulin and Lantus. Downgrade the patient to med surge today. Continuing with carb controlled diet Advised the patient on ophthalmology consult Advised the patient to check his foot every night for possible neuropathy and cut This medical document was created using an electronic medical record system with [employer] direct computerized dictation system. Although this document has been carefully reviewed, there may still be some phonetic and typographical errors. These areas are purely typographical due to imperfections of the software programs, and do not reflect any compromise in the patient's medical care. Plan discussed with: Patient My Orders Orders - CAPRI HASTINGS MD Procedure Category Date Status Time Communication Order ORDERS 05/06/25 Transmitted 16:52 Sodium Chloride 0.9% PHA 05/06/25 In Process 17:45 Insulin Lantus PHA 05/07/25 In Process (Glargine) (Lantus) 10:00 Consistent DIET 05/06/25 Transmitted Carb(Ccho)Diabetes Dinner Date of Service: May 07, 2025 Billing Provider: CAPRI HASTINGS MD Common Visit Codes: [id number] INP/OBS CARE(HIGH) CAPRI HASTINGS MD May 07, 2025 11:59
[2025-05-07] MEDS: NYSTATIN TOPICAL POWDER 15GM TOP SCH (21:25)
[2025-05-08] VITALS (7 sets, daily range): BP systolic 108–133; BP diastolic 76–88; PULSE 80–103; RESP 18–20; TEMP 97.4–98.8; O2SAT 96–99
--- NOTE | 2025-05-08 12:56 | DVHPN2 ---
Subjective Patient is seen and examined at bedside. Feel better. Patient is off insulin drip. Patient is eating right now. Reviewed: Care Plan, H&P, Labs, Medications, Previous Orders, Radiology Changes from previous H/P or p: No Changes Eyes: No Pain, No Vision change, No Conjunctivae inflammation, No Eyelid inflammation, No Other, No Redness ENT: No Ear pain, No Ear discharge, No Nose pain, No Nose discharge, No Nose congestion, No Mouth pain, No Mouth swelling, No Throat pain, No Throat swelling, No Other Cardiovascular: No Chest Pain, No Palpitations, No Orthopnea, No Paroxysmal Noc. Dyspnea, No Edema, No Lt Headedness, No Other Respiratory: No Cough, No Dry, No Shortness of breath, No SOB with excertion, No Wheezing, No Hemoptysis, No Pleuritic Pain, No Sputum, No Other Gastrointestinal: No Nausea, No Vomiting, No Abdominal Pain, No Diarrhea, No Constipation, No Melena, No Hematochezia, No Other Genitourinary: No Dysuria; Frequency, Incontinence; No Hematuria, No Retention; Other (Urinary urgency) Musculoskeletal: No other, No neck pain, No shoulder pain, No arm pain, No back pain, No hand pain, No leg pain, No foot pain Skin: No Rash, No Lesions, No Jaundice, No Bruising, No Other Objective Vitals Vital Signs Date Time Temp Pulse Resp B/P (MAP) Pulse Ox O2 Delivery O2 Flow Rate FiO2 05/08/25 09:00 98.8 87 20 128/88 (101) 96 98.8 05/07/25 22:00 Room Air* 0 21 Intake/Output Intake and Output 05/08/25 07:00 Intake Total 3340 ml Output Total 2200 ml Balance 1140 ml Intake Oral 1240 ml IV Total 2100 ml Output Urine Total 2200 ml # Voids 2 # Bowel Movements 1 General Appearance: Alert, Oriented X3, Cooperative, No acute distress HEENT: Atraumatic, PERRLA, EOMI, Mucous membr. moist/pink Neck: Rigidity Lungs: Clear to auscultation, Normal air movement Cardiovascular: Regular rate, Normal S1, Normal S2, No murmurs, Gallops, Rubs Abdomen: Normal bowel sounds, Soft, No tenderness Neuro: Cranial nerves 3-12 NL Psych/Mental Status: Mental status NL Medications Current Medications Medications Dose Ordered Sig/Markie Route Start Time Stop Time Status Last Admin Dose Admin Acetaminophen/ Hydrocodone Bitart 1 tab Q4HP PRN PO 05/05/25 22:00 Ondansetron HCl 4 mg Q4HP PRN IV 05/05/25 22:00 Docusate Sodium 100 mg BIDPRN PRN PO 05/05/25 22:00 Acetaminophen 650 mg Q6HP PRN PO 05/05/25 22:00 05/06/25 13:58 650 MG Hydralazine HCl 10 mg Q6HP PRN IV 05/05/25 22:15 Nitroglycerin 0.4 mg Q5MINP PRN SL 05/05/25 23:15 Morphine Sulfate 2 mg Q30M PRN IV 05/05/25 23:15 Insulin Human (Reg)/Sodium Chloride 100 ml @ 2 mls/hr Q24H IV 05/06/25 09:30 UNV Diagnostic Test (Pha) 1 strip Q90MIN 05/06/25 18:00 UNV Insulin Human (Reg)/Sodium Chloride 100 ml @ 1 mls/hr Q24H IV 05/06/25 16:30 UNV Dextrose 50 ml PRN PRN IV 05/06/25 16:45 UNV Dextrose 50 ml UD PRN IV 05/06/25 17:45 Cancel Sodium Chloride 1,000 ml @ 150 mls/hr Q6H40M IV 05/06/25 17:45 05/08/25 12:38 150 MLS/HR Diagnostic Test (Pha) 1 strip ACHS 05/07/25 11:30 05/08/25 12:32 1 STRIP Insulin Human Regular HS SC 05/07/25 22:00 05/07/25 21:24 8 UNITS Insulin Human Regular AC SC 05/07/25 11:30 05/08/25 12:38 9 UNITS Dextrose 50 ml UD PRN IV 05/07/25 07:15 Nystatin 1 applic BID TOP 05/07/25 22:00 05/08/25 09:17 1 APPLIC Insulin Glargine 25 units DAILY@1000 SC 05/08/25 12:15 UNV Laboratory Results Laboratory Tests 05/07/25 03:22 Urinalysis Test 05/05/25 20:00 Urine Color Light-yellow (Yellow) Urine Clarity Clear (Clear) Urine pH 5.0 (5.0-9.0) Urine Specific [place] 1.035 (1.001-1.035) Urine Protein 1+ (Negative) H Urine Ketones 4+ (Negative) H Urine Blood Trace /uL (Negative) H Urine Nitrite Negative (Negative) Urine Bilirubin Negative (Negative) Urine Urobilinogen Normal mg/dL (Negative) Urine Leukocyte Esterase Negative /uL (Negative) Urine RBC 4 /hpf (0 - 3) Urine Microscopic WBC 1 /HPF (0-3) Urine Squamous Epithelial Cells Few /hpf (<5) Urine Bacteria None seen /hpf (None Seen) Urine Mucus Few (None Seen) Urine Yeast (Budding) Occasional /hpf (None Urine Glucose 4+ mg/dL (Normal) H Microbiology Microbiology Date/Time Source Procedure Growth Status 05/06/25 02:00 Nose MRSA Screen - Final Complete Labs and/or images reviewed: Labs reviewed by me Assessment/Plan Assessment/Plan Diabetes with ketoacidosis Possible diabetes type I New onset diabetes Generalized weakness Leukocytosis, unspecified Continuing current management. Continuing with sliding scale insulin and Lantus. Downgrade the patient to med surge today. Continuing with carb controlled diet Advised the patient on ophthalmology consult Advised the patient to check his foot every night for possible neuropathy and cut increase Lantus to 25unit sq qdaily This medical document was created using an electronic medical record system with [employer] direct computerized dictation system. Although this document has been carefully reviewed, there may still be some phonetic and typographical errors. These areas are purely typographical due to imperfections of the software programs, and do not reflect any compromise in the patient's medical care. Plan discussed with: Patient My Orders Orders - CAPRI HASTINGS MD Procedure Category Date Status Time Nystatin Powder PHA 05/07/25 In Process (Mycostatin Powder) 22:00 Transfer Orders XFER 05/07/25 Transmitted 14:52 Insulin Lantus PHA 05/08/25 Logged (Glargine) (Lantus) 12:15 Date of Service: May 08, 2025 Billing Provider: CAPRI HASTINGS MD Common Visit Codes: [id number] INP/OBS CARE(HIGH) CAPRI HASTINGS MD May 08, 2025 12:56
[2025-05-08] MEDS: INSULIN LANTUS (GLARGINE) 1 /0.01ml (100units/ml) SC SCH (14:10)
[2025-05-09] VITALS (7 sets, daily range): BP systolic 106–137; BP diastolic 59–88; PULSE 77–89; RESP 16–20; TEMP 97.4–98.2; O2SAT 96–99
--- NOTE | 2025-05-09 12:05 | ECG ---
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
--- NOTE | 2025-05-09 12:33 | DVHPN2 ---
Subjective Patient is seen and examined at bedside. Feel better. Blood glucose still not controlled today despite increase in Lantus. Reviewed: Care Plan, H&P, Labs, Medications, Previous Orders, Radiology Changes from previous H/P or p: No Changes Eyes: No Pain, No Vision change, No Conjunctivae inflammation, No Eyelid inflammation, No Other, No Redness ENT: No Ear pain, No Ear discharge, No Nose pain, No Nose discharge, No Nose congestion, No Mouth pain, No Mouth swelling, No Throat pain, No Throat swelling, No Other Cardiovascular: No Chest Pain, No Palpitations, No Orthopnea, No Paroxysmal Noc. Dyspnea, No Edema, No Lt Headedness, No Other Respiratory: No Cough, No Dry, No Shortness of breath, No SOB with excertion, No Wheezing, No Hemoptysis, No Pleuritic Pain, No Sputum, No Other Gastrointestinal: No Nausea, No Vomiting, No Abdominal Pain, No Diarrhea, No Constipation, No Melena, No Hematochezia, No Other Genitourinary: No Dysuria; Frequency, Incontinence; No Hematuria, No Retention; Other (Urinary urgency) Musculoskeletal: No other, No neck pain, No shoulder pain, No arm pain, No back pain, No hand pain, No leg pain, No foot pain Skin: No Rash, No Lesions, No Jaundice, No Bruising, No Other Objective Vitals Vital Signs Date Time Temp Pulse Resp B/P (MAP) Pulse Ox O2 Delivery O2 Flow Rate FiO2 05/09/25 09:00 98.2 85 20 137/88 (104) 99 98.2 05/08/25 20:00 Room Air* 0 21 Intake/Output Intake and Output 05/09/25 07:00 Intake Total 2520 ml Output Total 800 ml Balance 1720 ml Intake Oral 2520 ml Output Urine Total 800 ml # Voids 3 # Bowel Movements 1 General Appearance: Alert, Oriented X3, Cooperative, No acute distress HEENT: Atraumatic, PERRLA, EOMI, Mucous membr. moist/pink Neck: Rigidity Lungs: Clear to auscultation, Normal air movement Cardiovascular: Regular rate, Normal S1, Normal S2, No murmurs, Gallops, Rubs Abdomen: Normal bowel sounds, Soft, No tenderness Neuro: Cranial nerves 3-12 NL Psych/Mental Status: Mental status NL Medications Current Medications Medications Dose Ordered Sig/Markie Route Start Time Stop Time Status Last Admin Dose Admin Acetaminophen/ Hydrocodone Bitart 1 tab Q4HP PRN PO 05/05/25 22:00 Ondansetron HCl 4 mg Q4HP PRN IV 05/05/25 22:00 Docusate Sodium 100 mg BIDPRN PRN PO 05/05/25 22:00 Acetaminophen 650 mg Q6HP PRN PO 05/05/25 22:00 05/06/25 13:58 650 MG Hydralazine HCl 10 mg Q6HP PRN IV 05/05/25 22:15 Nitroglycerin 0.4 mg Q5MINP PRN SL 05/05/25 23:15 Morphine Sulfate 2 mg Q30M PRN IV 05/05/25 23:15 Insulin Human (Reg)/Sodium Chloride 100 ml @ 2 mls/hr Q24H IV 05/06/25 09:30 UNV Diagnostic Test (Pha) 1 strip Q90MIN 05/06/25 18:00 UNV Insulin Human (Reg)/Sodium Chloride 100 ml @ 1 mls/hr Q24H IV 05/06/25 16:30 UNV Dextrose 50 ml PRN PRN IV 05/06/25 16:45 UNV Dextrose 50 ml UD PRN IV 05/06/25 17:45 Cancel Sodium Chloride 1,000 ml @ 150 mls/hr Q6H40M IV 05/06/25 17:45 05/09/25 05:45 150 MLS/HR Diagnostic Test (Pha) 1 strip ACHS 05/07/25 11:30 05/09/25 11:34 1 STRIP Insulin Human Regular HS SC 05/07/25 22:00 05/08/25 21:35 8 UNITS Insulin Human Regular AC SC 05/07/25 11:30 05/09/25 11:33 9 UNITS Dextrose 50 ml UD PRN IV 05/07/25 07:15 Nystatin 1 applic BID TOP 05/07/25 22:00 05/09/25 10:03 1 APPLIC Insulin Glargine 25 units DAILY@1000 SC 05/08/25 12:15 05/09/25 10:05 25 UNITS Laboratory Results Laboratory Tests 05/07/25 03:22 Urinalysis Test 05/05/25 20:00 Urine Color Light-yellow (Yellow) Urine Clarity Clear (Clear) Urine pH 5.0 (5.0-9.0) Urine Specific [place] 1.035 (1.001-1.035) Urine Protein 1+ (Negative) H Urine Ketones 4+ (Negative) H Urine Blood Trace /uL (Negative) H Urine Nitrite Negative (Negative) Urine Bilirubin Negative (Negative) Urine Urobilinogen Normal mg/dL (Negative) Urine Leukocyte Esterase Negative /uL (Negative) Urine RBC 4 /hpf (0 - 3) Urine Microscopic WBC 1 /HPF (0-3) Urine Squamous Epithelial Cells Few /hpf (<5) Urine Bacteria None seen /hpf (None Seen) Urine Mucus Few (None Seen) Urine Yeast (Budding) Occasional /hpf (None Urine Glucose 4+ mg/dL (Normal) H Microbiology Microbiology Date/Time Source Procedure Growth Status 05/06/25 02:00 Nose MRSA Screen - Final Complete Labs and/or images reviewed: Labs reviewed by me Assessment/Plan Assessment/Plan Diabetes with ketoacidosis Possible diabetes type I New onset diabetes Generalized weakness Leukocytosis, unspecified Continuing current management. Continuing with sliding scale insulin and Lantus. Downgrade the patient to med surge today. Continuing with carb controlled diet Advised the patient on ophthalmology consult Advised the patient to check his foot every night for possible neuropathy and cut Change Lantus to 20 units subQ twice per day This medical document was created using an electronic medical record system with [employer] direct computerized dictation system. Although this document has been carefully reviewed, there may still be some phonetic and typographical errors. These areas are purely typographical due to imperfections of the software programs, and do not reflect any compromise in the patient's medical care. Plan discussed with: Patient My Orders Orders - CAPRI HASTINGS MD Procedure Category Date Status Time Insulin Lantus PHA 05/09/25 Verified (Glargine) (Lantus) 22:00 Date of Service: May 09, 2025 Billing Provider: CAPRI HASTINGS MD Common Visit Codes: [id number] INP/OBS CARE(HIGH) CAPRI HASTINGS MD May 09, 2025 12:33
[2025-05-09] MEDS: INSULIN LANTUS (GLARGINE) 1 /0.01ml (100units/ml) SC SCH (22:19)
[2025-05-10] VITALS (7 sets, daily range): BP systolic 100–136; BP diastolic 64–86; PULSE 72–90; RESP 18–20; TEMP 97.7–98.5; O2SAT 96–97
--- NOTE | 2025-05-10 10:03 | DVHPN2 ---
Subjective Patient is seen and examined at bedside. Feel better. Blood glucose still not controlled today despite increase in Lantus. Reviewed: Care Plan, H&P, Labs, Medications, Previous Orders, Radiology Changes from previous H/P or p: No Changes Eyes: No Pain, No Vision change, No Conjunctivae inflammation, No Eyelid inflammation, No Other, No Redness ENT: No Ear pain, No Ear discharge, No Nose pain, No Nose discharge, No Nose congestion, No Mouth pain, No Mouth swelling, No Throat pain, No Throat swelling, No Other Cardiovascular: No Chest Pain, No Palpitations, No Orthopnea, No Paroxysmal Noc. Dyspnea, No Edema, No Lt Headedness, No Other Respiratory: No Cough, No Dry, No Shortness of breath, No SOB with excertion, No Wheezing, No Hemoptysis, No Pleuritic Pain, No Sputum, No Other Gastrointestinal: No Nausea, No Vomiting, No Abdominal Pain, No Diarrhea, No Constipation, No Melena, No Hematochezia, No Other Genitourinary: No Dysuria; Frequency, Incontinence; No Hematuria, No Retention; Other (Urinary urgency) Musculoskeletal: No other, No neck pain, No shoulder pain, No arm pain, No back pain, No hand pain, No leg pain, No foot pain Skin: No Rash, No Lesions, No Jaundice, No Bruising, No Other Objective Vitals Vital Signs Date Time Temp Pulse Resp B/P (MAP) Pulse Ox O2 Delivery O2 Flow Rate FiO2 05/10/25 09:00 98.4 72 18 117/68 (84) 96 98.4 05/10/25 08:00 Room Air* 0 21 Intake/Output Intake and Output 05/10/25 07:00 Intake Total 2420 ml Balance 2420 ml Intake Oral 2420 ml # Voids 3 # Bowel Movements 1 General Appearance: Alert, Oriented X3, Cooperative, No acute distress HEENT: Atraumatic, PERRLA, EOMI, Mucous membr. moist/pink Neck: Rigidity Lungs: Clear to auscultation, Normal air movement Cardiovascular: Regular rate, Normal S1, Normal S2, No murmurs, Gallops, Rubs Abdomen: Normal bowel sounds, Soft, No tenderness Neuro: Cranial nerves 3-12 NL Psych/Mental Status: Mental status NL Medications Current Medications Medications Dose Ordered Sig/Markie Route Start Time Stop Time Status Last Admin Dose Admin Acetaminophen/ Hydrocodone Bitart 1 tab Q4HP PRN PO 05/05/25 22:00 Ondansetron HCl 4 mg Q4HP PRN IV 05/05/25 22:00 Docusate Sodium 100 mg BIDPRN PRN PO 05/05/25 22:00 Acetaminophen 650 mg Q6HP PRN PO 05/05/25 22:00 05/06/25 13:58 650 MG Hydralazine HCl 10 mg Q6HP PRN IV 05/05/25 22:15 Nitroglycerin 0.4 mg Q5MINP PRN SL 05/05/25 23:15 Morphine Sulfate 2 mg Q30M PRN IV 05/05/25 23:15 Insulin Human (Reg)/Sodium Chloride 100 ml @ 2 mls/hr Q24H IV 05/06/25 09:30 UNV Diagnostic Test (Pha) 1 strip Q90MIN 05/06/25 18:00 UNV Insulin Human (Reg)/Sodium Chloride 100 ml @ 1 mls/hr Q24H IV 05/06/25 16:30 UNV Dextrose 50 ml PRN PRN IV 05/06/25 16:45 UNV Dextrose 50 ml UD PRN IV 05/06/25 17:45 Cancel Sodium Chloride 1,000 ml @ 150 mls/hr Q6H40M IV 05/06/25 17:45 05/09/25 15:58 150 MLS/HR Diagnostic Test (Pha) 1 strip ACHS 05/07/25 11:30 05/10/25 06:32 1 STRIP Insulin Human Regular HS SC 05/07/25 22:00 05/09/25 22:19 4 UNITS Insulin Human Regular AC SC 05/07/25 11:30 05/10/25 06:30 6 UNITS Dextrose 50 ml UD PRN IV 05/07/25 07:15 Nystatin 1 applic BID TOP 05/07/25 22:00 05/09/25 22:14 1 APPLIC Insulin Glargine 20 units BID SC 05/09/25 22:00 05/09/25 22:19 20 UNITS Laboratory Results Laboratory Tests 05/07/25 03:22 Urinalysis Test 05/05/25 20:00 Urine Color Light-yellow (Yellow) Urine Clarity Clear (Clear) Urine pH 5.0 (5.0-9.0) Urine Specific [place] 1.035 (1.001-1.035) Urine Protein 1+ (Negative) H Urine Ketones 4+ (Negative) H Urine Blood Trace /uL (Negative) H Urine Nitrite Negative (Negative) Urine Bilirubin Negative (Negative) Urine Urobilinogen Normal mg/dL (Negative) Urine Leukocyte Esterase Negative /uL (Negative) Urine RBC 4 /hpf (0 - 3) Urine Microscopic WBC 1 /HPF (0-3) Urine Squamous Epithelial Cells Few /hpf (<5) Urine Bacteria None seen /hpf (None Seen) Urine Mucus Few (None Seen) Urine Yeast (Budding) Occasional /hpf (None Urine Glucose 4+ mg/dL (Normal) H Microbiology Microbiology Date/Time Source Procedure Growth Status 05/06/25 02:00 Nose MRSA Screen - Final Complete Labs and/or images reviewed: Labs reviewed by me Assessment/Plan Assessment/Plan Diabetes with ketoacidosis Possible diabetes type I New onset diabetes Generalized weakness Leukocytosis, unspecified Continuing current management. Continuing with sliding scale insulin and Lantus. Downgrade the patient to med surge today. Continuing with carb controlled diet Advised the patient on ophthalmology consult Advised the patient to check his foot every night for possible neuropathy and cut Change Lantus to 25 units subQ twice per day This medical document was created using an electronic medical record system with [employer] direct computerized dictation system. Although this document has been carefully reviewed, there may still be some phonetic and typographical errors. These areas are purely typographical due to imperfections of the software programs, and do not reflect any compromise in the patient's medical care. Plan discussed with: Patient My Orders Orders - CAPRI HASTINGS MD Procedure Category Date Status Time Insulin Lantus PHA 05/09/25 In Process (Glargine) (Lantus) 22:00 Date of Service: May 10, 2025 Billing Provider: CAPRI HASTINGS MD Common Visit Codes: [id number] INP/OBS CARE(HIGH) CAPRI HASTINGS MD May 10, 2025 10:03
[2025-05-10] MEDS: INSULIN LANTUS (GLARGINE) 1 /0.01ml (100units/ml) SC ONE (12:00)
[2025-05-10] MEDS: INSULIN LANTUS (GLARGINE) 1 /0.01ml (100units/ml) SC SCH (22:12)
[2025-05-11 01:00] VITALS: BP 113/68; PULSE 87; RESP 18; TEMP 98.2; O2SAT 96
[2025-05-11 05:00] VITALS: BP 120/67; PULSE 68; RESP 17; TEMP 98.1; O2SAT 97
[2025-05-11 09:00] VITALS: BP_SYST 118; BP_SYST 119; BP_DIAS 69; BP_DIAS 73; PULSE 82; RESP 18; TEMP 97.8; O2SAT 95
--- NOTE | 2025-05-11 11:36 | DVHPN2 ---
Subjective Patient is seen and examined at bedside. Feel better. Blood glucose still not controlled today despite increase in Lantus. Reviewed: Care Plan, H&P, Labs, Medications, Previous Orders, Radiology Changes from previous H/P or p: No Changes Eyes: No Pain, No Vision change, No Conjunctivae inflammation, No Eyelid inflammation, No Other, No Redness ENT: No Ear pain, No Ear discharge, No Nose pain, No Nose discharge, No Nose congestion, No Mouth pain, No Mouth swelling, No Throat pain, No Throat swelling, No Other Cardiovascular: No Chest Pain, No Palpitations, No Orthopnea, No Paroxysmal Noc. Dyspnea, No Edema, No Lt Headedness, No Other Respiratory: No Cough, No Dry, No Shortness of breath, No SOB with excertion, No Wheezing, No Hemoptysis, No Pleuritic Pain, No Sputum, No Other Gastrointestinal: No Nausea, No Vomiting, No Abdominal Pain, No Diarrhea, No Constipation, No Melena, No Hematochezia, No Other Genitourinary: No Dysuria; Frequency, Incontinence; No Hematuria, No Retention; Other (Urinary urgency) Musculoskeletal: No other, No neck pain, No shoulder pain, No arm pain, No back pain, No hand pain, No leg pain, No foot pain Skin: No Rash, No Lesions, No Jaundice, No Bruising, No Other Objective Vitals Vital Signs Date Time Temp Pulse Resp B/P (MAP) Pulse Ox O2 Delivery O2 Flow Rate FiO2 05/11/25 09:00 97.8 82 18 118/73 (88) 95 97.8 05/11/25 08:00 Room Air* 0 21 Intake/Output Intake and Output 05/11/25 07:00 Intake Total 3390 ml Balance 3390 ml Intake Oral 2390 ml IV Total 1000 ml # Voids 8 # Bowel Movements 2 General Appearance: Alert, Oriented X3, Cooperative, No acute distress HEENT: Atraumatic, PERRLA, EOMI, Mucous membr. moist/pink Neck: Rigidity Lungs: Clear to auscultation, Normal air movement Cardiovascular: Regular rate, Normal S1, Normal S2, No murmurs, Gallops, Rubs Abdomen: Normal bowel sounds, Soft, No tenderness Neuro: Cranial nerves 3-12 NL Psych/Mental Status: Mental status NL Medications Current Medications Medications Dose Ordered Sig/Markie Route Start Time Stop Time Status Last Admin Dose Admin Acetaminophen/ Hydrocodone Bitart 1 tab Q4HP PRN PO 05/05/25 22:00 Ondansetron HCl 4 mg Q4HP PRN IV 05/05/25 22:00 Docusate Sodium 100 mg BIDPRN PRN PO 05/05/25 22:00 Acetaminophen 650 mg Q6HP PRN PO 05/05/25 22:00 05/06/25 13:58 650 MG Hydralazine HCl 10 mg Q6HP PRN IV 05/05/25 22:15 Nitroglycerin 0.4 mg Q5MINP PRN SL 05/05/25 23:15 Morphine Sulfate 2 mg Q30M PRN IV 05/05/25 23:15 Insulin Human (Reg)/Sodium Chloride 100 ml @ 2 mls/hr Q24H IV 05/06/25 09:30 UNV Diagnostic Test (Pha) 1 strip Q90MIN 05/06/25 18:00 UNV Insulin Human (Reg)/Sodium Chloride 100 ml @ 1 mls/hr Q24H IV 05/06/25 16:30 UNV Dextrose 50 ml PRN PRN IV 05/06/25 16:45 UNV Dextrose 50 ml UD PRN IV 05/06/25 17:45 Cancel Sodium Chloride 1,000 ml @ 150 mls/hr Q6H40M IV 05/06/25 17:45 05/11/25 11:17 150 MLS/HR Diagnostic Test (Pha) 1 strip ACHS 05/07/25 11:30 05/11/25 11:17 1 STRIP Insulin Human Regular HS SC 05/07/25 22:00 05/10/25 22:13 6 UNITS Insulin Human Regular AC SC 05/07/25 11:30 05/11/25 11:35 12 UNITS Dextrose 50 ml UD PRN IV 05/07/25 07:15 Nystatin 1 applic BID TOP 05/07/25 22:00 05/11/25 10:22 1 APPLIC Insulin Glargine 25 units BID SC 05/10/25 22:00 05/11/25 10:21 25 UNITS Insulin Glargine 30 units BID@0700,2200 SC 05/11/25 22:00 UNV Laboratory Results Laboratory Tests 05/07/25 03:22 Urinalysis Test 05/05/25 20:00 Urine Color Light-yellow (Yellow) Urine Clarity Clear (Clear) Urine pH 5.0 (5.0-9.0) Urine Specific [place] 1.035 (1.001-1.035) Urine Protein 1+ (Negative) H Urine Ketones 4+ (Negative) H Urine Blood Trace /uL (Negative) H Urine Nitrite Negative (Negative) Urine Bilirubin Negative (Negative) Urine Urobilinogen Normal mg/dL (Negative) Urine Leukocyte Esterase Negative /uL (Negative) Urine RBC 4 /hpf (0 - 3) Urine Microscopic WBC 1 /HPF (0-3) Urine Squamous Epithelial Cells Few /hpf (<5) Urine Bacteria None seen /hpf (None Seen) Urine Mucus Few (None Seen) Urine Yeast (Budding) Occasional /hpf (None Urine Glucose 4+ mg/dL (Normal) H Microbiology Microbiology Date/Time Source Procedure Growth Status 05/06/25 02:00 Nose MRSA Screen - Final Complete Assessment/Plan Assessment/Plan Diabetes with ketoacidosis Possible diabetes type I New onset diabetes Generalized weakness Leukocytosis, unspecified Continuing current management. Continuing with sliding scale insulin and Lantus. Downgrade the patient to med surge today. Continuing with carb controlled diet Advised the patient on ophthalmology consult Advised the patient to check his foot every night for possible neuropathy and cut Change Lantus to 30 units subQ twice per day This medical document was created using an electronic medical record system with [employer] direct computerized dictation system. Although this document has been carefully reviewed, there may still be some phonetic and typographical errors. These areas are purely typographical due to imperfections of the software programs, and do not reflect any compromise in the patient's medical care. Plan discussed with: Patient My Orders Orders - CAPRI HASTINGS MD Procedure Category Date Status Time Insulin Lantus PHA 05/11/25 Transmitted (Glargine) (Lantus) 22:00 Date of Service: May 11, 2025 Billing Provider: CAPRI HASTINGS MD Common Visit Codes: [id number] INP/OBS CARE(HIGH) CAPRI HASTINGS MD May 11, 2025 11:36
[2025-05-11 13:00] VITALS: BP 119/76; PULSE 98; RESP 18; TEMP 98.4; O2SAT 96
[2025-05-11 17:00] VITALS: BP 122/79; PULSE 90; RESP 18; TEMP 98.2; O2SAT 97
[2025-05-11 21:00] VITALS: BP 114/69; PULSE 97; RESP 21; TEMP 98.2; O2SAT 96
[2025-05-11] MEDS: INSULIN LANTUS (GLARGINE) 1 /0.01ml (100units/ml) SC SCH (22:33)
[2025-05-12] VITALS (7 sets, daily range): BP systolic 112–122; BP diastolic 71–83; PULSE 70–91; RESP 16–20; TEMP 97.7–98.5; O2SAT 95–99
--- NOTE | 2025-05-12 13:07 | DVHPN2 ---
Subjective Patient is seen and examined at bedside. Feel better. Blood glucose still not controlled today despite increase in Lantus. Reviewed: Care Plan, H&P, Labs, Medications, Previous Orders, Radiology Changes from previous H/P or p: No Changes Eyes: No Pain, No Vision change, No Conjunctivae inflammation, No Eyelid inflammation, No Other, No Redness ENT: No Ear pain, No Ear discharge, No Nose pain, No Nose discharge, No Nose congestion, No Mouth pain, No Mouth swelling, No Throat pain, No Throat swelling, No Other Cardiovascular: No Chest Pain, No Palpitations, No Orthopnea, No Paroxysmal Noc. Dyspnea, No Edema, No Lt Headedness, No Other Respiratory: No Cough, No Dry, No Shortness of breath, No SOB with excertion, No Wheezing, No Hemoptysis, No Pleuritic Pain, No Sputum, No Other Gastrointestinal: No Nausea, No Vomiting, No Abdominal Pain, No Diarrhea, No Constipation, No Melena, No Hematochezia, No Other Genitourinary: No Dysuria; Frequency, Incontinence; No Hematuria, No Retention; Other (Urinary urgency) Musculoskeletal: No other, No neck pain, No shoulder pain, No arm pain, No back pain, No hand pain, No leg pain, No foot pain Skin: No Rash, No Lesions, No Jaundice, No Bruising, No Other Objective Vitals Vital Signs Date Time Temp Pulse Resp B/P (MAP) Pulse Ox O2 Delivery O2 Flow Rate FiO2 05/12/25 08:33 97.7 70 18 122/83 (96) 99 97.7 05/12/25 08:00 Room Air* 0 21 Intake/Output Intake and Output 05/12/25 07:00 Intake Total 4320 ml Balance 4320 ml Intake Oral 2320 ml IV Total 2000 ml # Voids 14 # Bowel Movements 2 General Appearance: Alert, Oriented X3, Cooperative, No acute distress HEENT: Atraumatic, PERRLA, EOMI, Mucous membr. moist/pink Neck: Rigidity Lungs: Clear to auscultation, Normal air movement Cardiovascular: Regular rate, Normal S1, Normal S2, No murmurs, Gallops, Rubs Abdomen: Normal bowel sounds, Soft, No tenderness Neuro: Cranial nerves 3-12 NL Psych/Mental Status: Mental status NL Medications Current Medications Medications Dose Ordered Sig/Markie Route Start Time Stop Time Status Last Admin Dose Admin Acetaminophen/ Hydrocodone Bitart 1 tab Q4HP PRN PO 05/05/25 22:00 Ondansetron HCl 4 mg Q4HP PRN IV 05/05/25 22:00 Docusate Sodium 100 mg BIDPRN PRN PO 05/05/25 22:00 Acetaminophen 650 mg Q6HP PRN PO 05/05/25 22:00 05/06/25 13:58 650 MG Hydralazine HCl 10 mg Q6HP PRN IV 05/05/25 22:15 Nitroglycerin 0.4 mg Q5MINP PRN SL 05/05/25 23:15 Morphine Sulfate 2 mg Q30M PRN IV 05/05/25 23:15 Insulin Human (Reg)/Sodium Chloride 100 ml @ 2 mls/hr Q24H IV 05/06/25 09:30 UNV Diagnostic Test (Pha) 1 strip Q90MIN 05/06/25 18:00 UNV Insulin Human (Reg)/Sodium Chloride 100 ml @ 1 mls/hr Q24H IV 05/06/25 16:30 UNV Dextrose 50 ml PRN PRN IV 05/06/25 16:45 UNV Dextrose 50 ml UD PRN IV 05/06/25 17:45 Cancel Sodium Chloride 1,000 ml @ 150 mls/hr Q6H40M IV 05/06/25 17:45 05/12/25 06:23 150 MLS/HR Diagnostic Test (Pha) 1 strip ACHS 05/07/25 11:30 05/12/25 11:14 1 STRIP Insulin Human Regular HS SC 05/07/25 22:00 05/11/25 22:32 4 UNITS Insulin Human Regular AC SC 05/07/25 11:30 05/12/25 11:15 6 UNITS Dextrose 50 ml UD PRN IV 05/07/25 07:15 Nystatin 1 applic BID TOP 05/07/25 22:00 05/12/25 11:14 1 APPLIC Insulin Glargine 30 units BID@0700,2200 MI 05/11/25 22:00 05/12/25 06:20 30 UNITS Laboratory Results Laboratory Tests 05/07/25 03:22 Urinalysis Test 05/05/25 20:00 Urine Color Light-yellow (Yellow) Urine Clarity Clear (Clear) Urine pH 5.0 (5.0-9.0) Urine Specific [place] 1.035 (1.001-1.035) Urine Protein 1+ (Negative) H Urine Ketones 4+ (Negative) H Urine Blood Trace /uL (Negative) H Urine Nitrite Negative (Negative) Urine Bilirubin Negative (Negative) Urine Urobilinogen Normal mg/dL (Negative) Urine Leukocyte Esterase Negative /uL (Negative) Urine RBC 4 /hpf (0 - 3) Urine Microscopic WBC 1 /HPF (0-3) Urine Squamous Epithelial Cells Few /hpf (<5) Urine Bacteria None seen /hpf (None Seen) Urine Mucus Few (None Seen) Urine Yeast (Budding) Occasional /hpf (None Urine Glucose 4+ mg/dL (Normal) H Microbiology Microbiology Date/Time Source Procedure Growth Status 05/06/25 02:00 Nose MRSA Screen - Final Complete Assessment/Plan Assessment/Plan Diabetes with ketoacidosis Possible diabetes type I New onset diabetes Generalized weakness Leukocytosis, unspecified Continuing current management. Continuing with sliding scale insulin and Lantus. Downgrade the patient to med surge today. Continuing with carb controlled diet Advised the patient on ophthalmology consult Advised the patient to check his foot every night for possible neuropathy and cut Change Lantus to 40 units subQ twice per day This medical document was created using an electronic medical record system with [employer] direct computerized dictation system. Although this document has been carefully reviewed, there may still be some phonetic and typographical errors. These areas are purely typographical due to imperfections of the software programs, and do not reflect any compromise in the patient's medical care. Plan discussed with: Patient Date of Service: May 12, 2025 Billing Provider: CAPRI HASTINGS MD Common Visit Codes: [id number] INP/OBS CARE(HIGH) CAPRI HASTINGS MD May 12, 2025 13:07
[2025-05-12] MEDS: INSULIN LANTUS (GLARGINE) 1 /0.01ml (100units/ml) SC SCH (22:18)
[2025-05-13 01:00] VITALS: BP 117/78; PULSE 77; RESP 20; TEMP 98.1; O2SAT 97
[2025-05-13 05:00] VITALS: BP 101/54; PULSE 75; RESP 19; TEMP 97.5; O2SAT 95
[2025-05-13 08:00] VITALS: O2SAT 95
[2025-05-13 09:00] VITALS: BP 102/67; PULSE 93; RESP 20; TEMP 97.8; O2SAT 97
[2025-05-13] MEDS ORDERED: INSLANTI SC (11:47)
[2025-05-13] MEDS ORDERED: INSU100I28 IJ (11:47)
[2025-05-13] MEDS ORDERED: INSU1MIS44 XX (11:47)
[2025-05-13] MEDS ORDERED: LANC1MIS XX (11:49)
[2025-05-13] MEDS ORDERED: BLOO-329 XX (11:49)
[2025-05-13] MEDS ORDERED: GLUC1TES63 VI (11:49)
[2025-05-13 12:56] VITALS: BP 112/68; PULSE 84; RESP 20; TEMP 97.9; O2SAT 94
== END 2025-05-13 15:37 | disposition home or self-care (01) | DRG 639 ==
LOC: ER 13:52 → OVERFLOW 23:09 → ICU WEST 23:10 → WEST WING 05-07 22:16
PROVIDERS: ADMIT Internal Medicine; ATTEND Internal Medicine
DX: E10.10 Type 1 diabetes mellitus with ketoacidosis without coma (principal); D72.829 Elevated white blood cell count, unspecified; R32 Unspecified urinary incontinence; Z83.3 Family history of diabetes mellitus; Z79.899 Other long term (current) drug therapy
CPT/HCPCS: 36415; 80048; 80053; 80307; 81001; 82010; 82962; 83036; 83690; 83735; 83930; 84100; 85025; 87081; 93005; 96361; 96374; 99291; G0378; J1815; J2405